=== PATIENT | female | born 1985 | race Caucasian/White ===

== ENCOUNTER 2017-09-29 05:30 | Inpatient (IN) | payer OTHER ==
[2017-09-29] MEDS ORDERED: Lidocaine 1% (PF) 30 ML VIAL SC PRN ×2 (10:29→11:17)
[2017-09-29] MEDS ORDERED: Promethazine HCl 25 MG/ML VIAL IM PRN ×2 (10:29→11:17)
[2017-09-29] MEDS ORDERED: Ondansetron HCl/PF 4 MG/2 ML Vial IVP PRN ×3 (10:29→19:24)
[2017-09-29] MEDS ORDERED: NS / Oxytocin 40 units/1000ml 1,000 ML IV PRN (10:29)
[2017-09-29] MEDS ORDERED: Penicillin G Potassium 5 MILL.UNITS in Sodium Chloride 0.9% 100 ML IVPB SCH (10:30)
[2017-09-29] MEDS: Lactated Ringer's 1,000 ML IV SCH (11:10)
[2017-09-29] MEDS ORDERED: HYDROcodone/Acetaminophen 5/325 mg Tablet PO PRN ×4 (11:17→19:24)
[2017-09-29] MEDS ORDERED: Butorphanol Tartrate 1 MG/ML VIAL SLOW IVP PRN (11:17)
[2017-09-29] MEDS ORDERED: NS w/ Oxytocin 10 units 500 ML IV SCH (11:17)
[2017-09-29] MEDS ORDERED: Labetalol HCl 100 MG/20 ML VIAL SLOW IVP PRN (11:17)
[2017-09-29] MEDS ORDERED: Zolpidem Tartrate 5 MG TAB PO PRN ×2 (11:17→19:24)
[2017-09-29] MEDS ORDERED: Lactated Ringer's 1,000 ML IV SCH (11:17)
[2017-09-29] MEDS ORDERED: Ibuprofen 800 MG TAB PO PRN (11:17)
[2017-09-29] MEDS ORDERED: Penicillin G Potassium 5 MILL.UNITS VIAL ONE (11:25)
[2017-09-29 11:31] VITALS: BMI 25.7
[2017-09-29 11:34] LABS: Hemoglobin 12.8 g/dL (12.0-16.0); Mean Corpuscular HGB CONC 35.6 g/dL (32.0-36.0); Mean Corpuscular Hemoglobin 31.5 pg (27.0-31.0); Mean Corpuscular Volume 88.4 fL (78.0-98.0); Mean Platelet Volume 7.3 fL (7.4-10.4); Platelet Count 160 thou/uL (130-400); RBC Distribution Width 14.4 % (11.5-14.5); Red Blood Cell (RBC) Count 4.05 mill/uL (4.20-5.40); White Blood Cell (WBC) Count 9.4 thou/uL (4.8-10.8)
[2017-09-29 12:11] LABS: Syphilis Antibody Nonreactive (Nonreactive); Syphilis Antibody Index 0.06 S/CO (<1.00 Non-Reactive)
[2017-09-29 12:12] LABS: HBSAg Index 0.19 S/CO (0-0.99); Hep B Surf Ag Non-Reactive S/CO (NonReactive)
[2017-09-29] MEDS ORDERED: Penicillin G 2.5 MILL.units 2.5 MILL.UNITS in Premix Bag 1 BAG IVPB SCH (15:30)
[2017-09-29] MEDS: NS / Oxytocin 40 units/1000ml 1,000 ML IV PRN ×2 (15:45→17:31)
[2017-09-29] MEDS ORDERED: Adacel (T-DAP) 0.5 ML VIAL IM ONE (19:24)
[2017-09-29] MEDS ORDERED: NS / Oxytocin 40 units/1000ml 1,000 ML IV SCH (19:24)
[2017-09-29] MEDS ORDERED: Benzocaine/Menthol 20-0.5% 60 ML CAN TOP PRN (19:24)
[2017-09-29] MEDS ORDERED: Milk Of Magnesia 30 ML UDCUP PO PRN (19:24)
[2017-09-29] MEDS ORDERED: Bisacodyl 10 MG SUPP PR PRN (19:24)
[2017-09-29] MEDS ORDERED: diphenhydrAMINE 25 MG CAP PO PRN (19:24)
[2017-09-29] MEDS ORDERED: Preparation H Ointment 28 GM TUBE PR PRN (19:24)
[2017-09-29] MEDS ORDERED: Ferrous Sulfate 325 MG TAB PO SCH (19:45)
[2017-09-29] MEDS: Docusate Calcium (SURFAK) 240 MG CAP PO SCH (21:18)
[2017-09-29] MEDS: Ibuprofen 800 MG TAB PO SCH (21:18)
[2017-09-29] MEDS: Labetalol 100 MG TAB PO SCH (21:19)
[2017-09-30] MEDS: Lactated Ringer's 1,000 ML IV SCH (00:38)
[2017-09-30] MEDS ORDERED: Sodium Chloride 0.9% 10 ML ONE (03:18)
[2017-09-30] MEDS: Ibuprofen 800 MG TAB PO SCH ×2 (04:53→14:10)
[2017-09-30] MEDS ORDERED: Ferrous Sulfate 325 MG TAB PO SCH (08:00)
[2017-09-30] MEDS ORDERED: Prenatal Vitamin 1 TAB PO SCH (09:00)
[2017-09-30] MEDS: Labetalol 100 MG TAB PO SCH (09:05)
[2017-09-30] MEDS: Docusate Calcium (SURFAK) 240 MG CAP PO SCH (09:05)
[2017-09-30 12:05] VITALS: BP 130/75; TEMP 98.2
--- NOTE | 2017-09-30 12:07 | PDOC.PP ---
Post Progress Note Post Day #: 1 PO intake tolerated: yes Flatus: yes Ambulation: yes Vital Signs (12 hours) Temp Pulse Resp BP 09/30/17 12:00 98.2 F 76 20 130/75 09/30/17 09:05 84 09/30/17 08:02 98.1 F 84 20 134/74 09/30/17 07:40 97.7 F 81 18 09/30/17 04:40 97.7 F 81 18 138/81 09/30/17 01:25 98.0 F 84 18 146/77 H Weight Weight 150 lb - Physical Examination General: NAD Cardiovascular: no m/r/g, RRR Respiratory: clear to auscultation bilaterally Abdominal: + bowel sounds, lochia Extremities: negative homans (B) Neurological: no gross focal deficits Psychiatric: A&Ox3 ([place] [id number]), normal affect Result Diagrams: 09/29/17 11:19 Additional Labs: Post Labs Blood Type A NEGATIVE 09/29/17 11:19 Hep Bs Antigen Non-Reactive S/CO (NonReactive) 09/29/17 11:19
[2017-09-30] MEDS ORDERED: Measles/Mumps/Rubella 10 MCG/0.5 ML VIAL SC ONE (13:45)
== END 2017-09-30 17:35 | disposition home or self-care (01) | DRG 774 ==
LOC: L&D 10:42 → 3SW 18:35
PROVIDERS: ADMIT Obstetrics & Gynecology; ATTEND Obstetrics & Gynecology
PROC: 0HQ9XZZ Repair Perineum Skin, External Approach (ICD-10-PCS; principal; 2017-09-29)
PROC: 10E0XZZ Delivery of Products of Conception, External Approach (ICD-10-PCS; 2017-09-29)
PROC: 3E0134Z Introduction of Serum, Toxoid and Vaccine into Subcutaneous Tissue, Percutaneous Approach (ICD-10-PCS; 2017-09-30)
DX: O80 Encounter for full-term uncomplicated delivery (principal); O10.92 Unspecified pre-existing hypertension complicating childbirth; O99.824 Streptococcus B carrier state complicating childbirth; O70.0 First degree perineal laceration during delivery; Z3A.39 39 weeks gestation of pregnancy; Z37.0 Single live birth; Z23 Encounter for immunization
CPT/HCPCS: 36415; 85027; 85461; 86780; 86850; 86870; 86900; 86901; 87340; 90384; 90707; 96372; A4216; J0595; J2001; J2540